=== PATIENT | male | born 1975 | race Caucasian/White ===

== ENCOUNTER 2017-02-26 12:27 | Emergency (ER) | payer BC, OTHER, SELFPAY ==
[~2017-02-26] VITALS: Ht 165.1 cm; Wt 65.8 kg
[2017-02-26 12:28] VITALS: BP 140/86
[2017-02-26] MEDS ORDERED: OMEP40CA2 (12:41)
[2017-02-26] MEDS ORDERED: ZOLP5TAB (12:41)
[2017-02-26] MEDS ORDERED: GABA-282 (12:41)
[2017-02-26] MEDS ORDERED: DICL75TA PO (14:02)
== END 2017-02-26 14:11 | disposition home or self-care (01) ==
LOC: M ED 13:34
DX: S13.4XXA Sprain of ligaments of cervical spine, initial encounter (principal); X58.XXXA Exposure to other specified factors, initial encounter; Y92.89 Other specified places as the place of occurrence of the external cause; Y93.89 Activity, other specified; M54.5 Low back pain; M89.29 Other disorders of bone development and growth, multiple sites; Z87.891 Personal history of nicotine dependence; Z88.8 Allergy status to other drugs, medicaments and biological substances; Y99.8 Other external cause status

== ENCOUNTER 2017-03-11 13:34 | Emergency (ER) | payer BC, SELFPAY ==
[~2017-03-11] VITALS: Ht 165.1 cm; Wt 65.8 kg
[~2017-03-11 13:34] MED LIST: DICL75TA PO; GABA-282; OMEP40CA2; ZOLP5TAB
[2017-03-11] MEDS ORDERED: NORCO, ANEXSIA 5/325MG TABLET (HYDROcodone/ACETAMINOPHEN) PO ONE (14:15)
--- NOTE | 2017-03-11 14:50 | REP ---
CERVICAL SPINE: AP and lateral views of the cervical spine with three total views obtained. There is no fracture or malalignment. There is no prevertebral soft tissue swelling. Disc spaces are well preserved. There is mild spurring of C5 and C6 vertebral bodies. IMPRESSION: Mild spurring C5 and C6. Signed by Rangel June MD 03/11/2017 05:45 P
[2017-03-11] MEDS ORDERED: NORCOTAB PO (14:59)
[2017-03-11 15:05] VITALS: BP 150/91
== END 2017-03-11 15:30 | disposition home or self-care (01) ==
LOC: M ED 14:31
DX: M50.322 Other cervical disc degeneration at C5-C6 level (principal); G47.00 Insomnia, unspecified; Z79.899 Other long term (current) drug therapy; Z88.8 Allergy status to other drugs, medicaments and biological substances

== ENCOUNTER → 2017-03-25 | Outpatient (CLI) | payer BC ==
[~2017-03-25] MED LIST changes: +FLON1SPR; +IBUP600T26 PO; +NORCOTAB PO; +VALI5TAB PO
--- NOTE | 2017-03-26 09:00 | REP ---
MRI CERVICAL SPINE WITHOUT CONTRAST: 03/25/2017. Clinical history: Neck pain. Comparison: X-ray 03/11/2017, MRI 10/12/2015. Technique: Sagittal T1, T2 and STIR images with axial T1-T2 sequences. Findings: Sagittal images show maintenance of the normal gentle cervical lordosis. Vertebral body heights and marrow signal through the cervical upper thoracic levels are normal throughout. There is loss of disc water signal at most levels without loss of disc height. There is no prevertebral swelling. Cervical cord shows no intrinsic signal abnormality, syrinx, atrophy or mass. There is ample subarachnoid space at the craniocervical junction with no cerebellar tonsillar ectopia. At C2-3, C3-4 and C4-5, there is no significant disc bulge herniation and no spinal or foraminal stenosis. At C5-6, there is minimal disc bulge thinning the ventral subarachnoid space but not causing central canal or foraminal stenosis. At C6-7 and C7-T1, there is no disc bulge or herniation and no spinal or foraminal stenosis. Impression: 1. Mild disc bulge at C5-6 without spinal or foraminal stenosis. No cord compression. 2. The other disc levels show no significant spinal or foraminal stenosis. No cord signal abnormality, syrinx or other abnormality. Stable examination. Signed by Zeferino Corrigan MD 03/26/2017 01:18 P
== END ==
LOC: M RAD 17:35
PROVIDERS: ATTEND Family Medicine Addiction Medicine
DX: M50.20 Other cervical disc displacement, unspecified cervical region (principal)

== ENCOUNTER 2017-04-02 14:30 | Emergency (ER) | payer BC ==
[~2017-04-02] VITALS: Ht 165.1 cm; Wt 72.6 kg
[~2017-04-02 14:30] MED LIST changes: -FLON1SPR; -IBUP600T26 PO; -VALI5TAB PO
[2017-04-02 14:31] VITALS: BP 155/89
[2017-04-02] MEDS ORDERED: FLON1SPR (14:46)
[2017-04-02] MEDS ORDERED: VALI5TAB PO (16:21)
[2017-04-02] MEDS ORDERED: IBUP600T26 PO (16:21)
== END 2017-04-02 16:30 | disposition home or self-care (01) ==
LOC: M ED 15:46
DX: M54.12 Radiculopathy, cervical region (principal); Z88.8 Allergy status to other drugs, medicaments and biological substances; Z79.899 Other long term (current) drug therapy; Z87.891 Personal history of nicotine dependence

== ENCOUNTER 2017-04-22 11:01 | Emergency (ER) | payer BC ==
[~2017-04-22] VITALS: Ht 165.1 cm; Wt 77.3 kg
[~2017-04-22 11:01] MED LIST changes: +FLON1SPR; +IBUP600T26 PO; +VALI5TAB PO
[2017-04-22] MEDS ORDERED: TESS100C PO (12:51)
[2017-04-22] MEDS ORDERED: CHERSYP3 PO (12:51)
[2017-04-22] MEDS ORDERED: ZITHTAB PO (12:51)
[2017-04-22 13:00] VITALS: BP 130/85
== END 2017-04-22 13:03 | disposition home or self-care (01) ==
LOC: M ED 12:09
DX: H65.91 Unspecified nonsuppurative otitis media, right ear (principal); J98.01 Acute bronchospasm; R51 Headache; G47.00 Insomnia, unspecified; Z90.49 Acquired absence of other specified parts of digestive tract; Z79.899 Other long term (current) drug therapy; Z88.8 Allergy status to other drugs, medicaments and biological substances

== ENCOUNTER 2017-06-04 13:27 | Emergency (ER) | payer BC ==
[~2017-06-04] VITALS: Ht 165.1 cm; Wt 78.2 kg
[~2017-06-04 13:27] MED LIST changes: +CHERSYP3 PO; +IBUP-1022 PO; -IBUP600T26 PO; +TESS100C PO; +ZITHTAB PO
[2017-06-04] MEDS ORDERED: PERCOCET 5MG/325MG TAB PO ONE (14:00)
[2017-06-04] MEDS ORDERED: MOBI4TAB PO (14:03)
--- NOTE | 2017-06-04 14:28 | REP ---
Right knee five views : There is no fracture or dislocation. Mineralization and joint spaces are normal. There are no calcifications or foreign bodies. Impression: Negative right knee . Signed by Rangel Holloway MD 06/04/2017 02:20 P
[2017-06-04] MEDS ORDERED: PERC5TAB12 PO (14:31)
[2017-06-04 14:45] VITALS: BP 146/84
== END 2017-06-04 15:01 | disposition home or self-care (01) ==
LOC: M ED 13:27
DX: M25.561 Pain in right knee (principal); K21.9 Gastro-esophageal reflux disease without esophagitis; M54.9 Dorsalgia, unspecified; G47.00 Insomnia, unspecified; Z79.899 Other long term (current) drug therapy; Z88.8 Allergy status to other drugs, medicaments and biological substances

== ENCOUNTER → 2017-06-24 | Outpatient (REF) | payer BC ==
[~2017-06-24] MED LIST changes: +EXCETAB80 PO; +MELO7.5T7 PO; +MOBI4TAB PO; +PERC5TAB12 PO
[2017-06-24 18:48] LABS: URIC ACID 6.3 MG/DL (3.5-7.2)
[2017-07-02 00:11] LABS: Lyme Disease IgG/IgM Antibodie <0.91 ISR (0.00-0.90); Lyme Disease IgM Ab Quantitati <0.80 index (0.00-0.79)
== END ==
LOC: M LABDRAW1 16:00
PROVIDERS: ATTEND Orthopaedic Surgery
DX: M25.561 Pain in right knee (principal)

== ENCOUNTER 2017-07-31 12:47 | Emergency (ER) | payer BC ==
[~2017-07-31] VITALS: Ht 167.6 cm; Wt 65.9 kg
[~2017-07-31 12:47] MED LIST changes: -EXCETAB80 PO; -MELO7.5T7 PO
[2017-07-31] MEDS ORDERED: EXCETAB80 PO (13:10)
[2017-07-31] MEDS ORDERED: PERCOCET 5MG/325MG TAB PO ONE (14:15)
[2017-07-31 14:18] VITALS: BP 116/68
== END 2017-07-31 14:19 | disposition home or self-care (01) ==
LOC: M ED 12:47
DX: M25.561 Pain in right knee (principal); G89.29 Other chronic pain; M51.36 Other intervertebral disc degeneration, lumbar region; M50.30 Other cervical disc degeneration, unspecified cervical region; M54.10 Radiculopathy, site unspecified; G47.00 Insomnia, unspecified; K21.9 Gastro-esophageal reflux disease without esophagitis; Z87.891 Personal history of nicotine dependence; Z79.899 Other long term (current) drug therapy; Z79.51 Long term (current) use of inhaled steroids; Z88.8 Allergy status to other drugs, medicaments and biological substances

== ENCOUNTER 2017-08-20 13:43 | Emergency (ER) | payer BC, MEDICAID ==
[~2017-08-20] VITALS: Ht 165.1 cm; Wt 72.7 kg
[2017-08-20 13:43] VITALS: BP 122/87
[~2017-08-20 13:43] MED LIST changes: +EXCETAB80 PO
[2017-08-20] MEDS ORDERED: MELO7.5T7 PO (14:15)
[2017-08-20] MEDS ORDERED: NORCOTAB PO (15:47)
== END 2017-08-20 15:56 | disposition home or self-care (01) ==
LOC: M ED 13:43
DX: M79.651 Pain in right thigh (principal); K21.9 Gastro-esophageal reflux disease without esophagitis; F17.210 Nicotine dependence, cigarettes, uncomplicated; Z79.899 Other long term (current) drug therapy; Z88.8 Allergy status to other drugs, medicaments and biological substances

== ENCOUNTER 2017-09-26 18:33 | Emergency (ER) | payer BC, MEDICAID, OTHER ==
[~2017-09-26] VITALS: Ht 165.1 cm; Wt 70.5 kg
[~2017-09-26 18:33] MED LIST changes: +MELO7.5T7 PO
[2017-09-26] MEDS ORDERED: IBUP-1022 PO (20:43)
[2017-09-26] MEDS ORDERED: IBUPROFEN 600 MG TAB PO ONE (20:45)
[2017-09-26 21:11] VITALS: BP 135/86
--- NOTE | 2017-09-27 08:04 | REP ---
Clinical: Trauma. Technique: AP, lateral, bilateral oblique views left wrist . Findings: The carpal bones, surrounding osseous structures, soft tissues, and joint spaces are normal. There is no evidence for acute fracture or dislocation. No subcutaneous emphysema or radiodense foreign body. Impression: Normal left wrist series. No acute fracture or dislocation Signed by Ilia Nixon MD 09/27/2017 07:55 A
== END 2017-09-26 21:20 | disposition home or self-care (01) ==
LOC: M ED 18:33
DX: S63.502A Unspecified sprain of left wrist, initial encounter (principal); W01.198A Fall on same level from slipping, tripping and stumbling with subsequent striking against other object, initial encounter; Y92.410 Unspecified street and highway as the place of occurrence of the external cause; Y93.89 Activity, other specified; Y99.8 Other external cause status; F17.210 Nicotine dependence, cigarettes, uncomplicated; Z79.899 Other long term (current) drug therapy; Z88.8 Allergy status to other drugs, medicaments and biological substances

== ENCOUNTER → 2017-10-31 | Outpatient (CLI) | payer OTHER ==
--- NOTE | 2017-10-31 14:50 | REP ---
TRIPLE PHASE BONE SCAN OF THE KNEES: Following the administration of 21.5 mCi technetium 99m MDP, patient's knees are imaged in the flow phase in the anterior and posterior projections showing symmetrical blood flow. Immediate, blood pool, and 3-hour delayed images are performed of the knees in the anterior, posterior, and both lateral projections. There is small focus of increased blood pooling with more intense focal delayed uptake in the right medial femoral condyle posteriorly. There is some mild delayed activity also in the right anterior tibial tubercle. No other definite abnormalities are seen. IMPRESSION: Focal mild increased blood pooling and more intense delayed uptake in the posterior aspect of the medial femoral condyle on the right. This could represent focal stress-related changes at a tendinous insertion site. There is no definite bone lesion seen on the prior radiographs from 06/04/2017. Very mild increased uptake on delayed images in the right anterior tibial tubercle could also represent focal stress-related changes. Further evaluation may be made with MRI of the right knee. Signed by Rangel June MD 10/31/2017 08:41 P
== END ==
LOC: M RAD 10:35
PROVIDERS: ATTEND Orthopaedic Surgery
DX: M17.11 Unilateral primary osteoarthritis, right knee (principal)

== ENCOUNTER → 2017-11-22 | Outpatient (CLI) | payer OTHER | LOC: M EKG 11:56 | DX: R00.2 Palpitations (principal) | CPT/HCPCS: 93005 ==

== ENCOUNTER 2017-11-29 14:31 | Emergency (ER) | payer OTHER, MEDICAID ==
[2017-11-29 15:21] LABS: BASO % 0.3 % (0.0-1.0); EOS # 0.1 10^3/uL (0.0-0.50); EOS % 1.3 % (0.0-3.0); HEMATOCRIT 41.2 % (42.0-52.0); HEMOGLOBIN 13.8 g/dl (14.0-18.0); IMMATURE GRANULOCYTE % 0.3 % (0-0); LYMPH # 2.2 10^3/uL (1.5-4.5); MEAN CORPUSCULAR HEMOGLOBIN 27.3 pg (27.0-33.0); MEAN CORPUSCULAR HGB CONC 33.5 g/dl (32.0-36.5); MEAN CORPUSCULAR VOLUME 81.6 fl (80.0-96.0); MONO # 0.5 10^3/uL (0.0-0.8); MONO % 7.6 % (0.0-5.0); NEUTROPHILS # 3.3 10^3/uL (1.8-7.7); NEUTROPHILS % 54.5 % (36.0-66.0); PLATELET COUNT, AUTOMATED 311 10^3/uL (150-450); RED BLOOD COUNT 5.05 10^6/uL (4.30-6.10); RED CELL DISTRIBUTION WIDTH 13.6 % (11.5-14.5); WHITE BLOOD COUNT 6.1 10^3/uL (4.0-10.0)
[2017-11-29 15:24] LABS: INR 0.86; PROTHROMBIN TIME 11.8 SECONDS (12.4-14.5)
[2017-11-29 15:37] LABS: ALBUMIN 4.5 GM/DL (3.2-5.2); ALBUMIN/GLOBULIN RATIO 1.29 (1.00-1.93); ALKALINE PHOSPHATASE 63 U/L (45-117); ALT/SGPT 49 U/L (12-78); ANION GAP 8 MEQ/L (8-16); AST/SGOT 25 U/L (7-37); BILIRUBIN,DIRECT < 0.1 MG/DL (0.0-0.2); BILIRUBIN,TOTAL 0.2 MG/DL (0.2-1.0); BLOOD UREA NITROGEN 15 MG/DL (7-18); CALCIUM LEVEL 9.1 MG/DL (8.5-10.1); CARBON DIOXIDE LEVEL 29 MEQ/L (21-32); CHLORIDE LEVEL 99 MEQ/L (98-107); CPK CREATINE PHOSPHOKINASE 137 U/L (39-308); CREATININE FOR GFR 1.04 MG/DL (0.70-1.30); GLOMERULAR FILTRATION RATE > 60.0 (>60); GLUCOSE, FASTING 75 MG/DL (70-105); LIPASE 203 U/L (73-393); MB/CK RELATIVE INDEX 0.72 (< OR =4); NT-PRO BNP 32 PG/ML (<125); POTASSIUM SERUM 3.6 MEQ/L (3.5-5.1); SODIUM LEVEL 136 MEQ/L (136-145); TROPONIN I < 0.02 NG/ML (< 0.10)
[2017-11-29 15:44] LABS: D-DIMER QUANT 350.8 ng/ml (<500)
[2017-11-29] MEDS ORDERED: ISOVUE-370 76% 100ML VIAL (Q9967) As Ordered (16:01)
[2017-11-29] MEDS: GI COCKTAIL 50ML BTL(HYOSCYAMINE/MAALOX/LIDOCAINE VISCOUS)(1:3:1) PO (16:13)
== END 2017-11-29 17:25 | disposition home or self-care (01) ==
LOC: M ED 14:31
DX: R07.9 Chest pain, unspecified (principal); Z98.890 Other specified postprocedural states; Z79.899 Other long term (current) drug therapy; Z88.8 Allergy status to other drugs, medicaments and biological substances
CPT/HCPCS: Q9967

== ENCOUNTER 2017-12-03 16:38 | Emergency (ER) | payer OTHER, MEDICAID ==
[2017-12-03] MEDS: NS 1,000 ML IV (16:59)
[2017-12-03] MEDS: ASPIRIN 81 MG CHEW TABLET PO (17:19)
[2017-12-03] MEDS: NITROGLYCERIN 0.4 MG SUBL TABLET SL (17:21)
[2017-12-03 17:35] LABS: BASO % 0.2 % (0.0-1.0); EOS # 0.1 10^3/uL (0.0-0.50); EOS % 0.5 % (0.0-3.0); HEMATOCRIT 38.8 % (42.0-52.0); HEMOGLOBIN 13.2 g/dl (14.0-18.0); IMMATURE GRANULOCYTE % 0.2 % (0-0); LYMPH # 2.2 10^3/uL (1.5-4.5); MEAN CORPUSCULAR HEMOGLOBIN 27.6 pg (27.0-33.0); MONO # 0.5 10^3/uL (0.0-0.8); NEUTROPHILS # 7.5 10^3/uL (1.8-7.7); NEUTROPHILS % 73.1 % (36.0-66.0); PLATELET COUNT, AUTOMATED 307 10^3/uL (150-450); RED BLOOD COUNT 4.79 10^6/uL (4.30-6.10); RED CELL DISTRIBUTION WIDTH 13.5 % (11.5-14.5); WHITE BLOOD COUNT 10.3 10^3/uL (4.0-10.0)
[2017-12-03 17:36] LABS: INR 0.97
[2017-12-03 17:45] LABS: ANION GAP 7 MEQ/L (8-16); BLOOD UREA NITROGEN 14 MG/DL (7-18); CALCIUM LEVEL 8.7 MG/DL (8.5-10.1); CARBON DIOXIDE LEVEL 28 MEQ/L (21-32); CHLORIDE LEVEL 101 MEQ/L (98-107); CPK CREATINE PHOSPHOKINASE 290 U/L (39-308); CREATININE FOR GFR 0.99 MG/DL (0.70-1.30); GLOMERULAR FILTRATION RATE > 60.0 (>60); GLUCOSE, FASTING 101 MG/DL (70-100); POTASSIUM SERUM 3.6 MEQ/L (3.5-5.1); SODIUM LEVEL 136 MEQ/L (136-145)
[2017-12-03 17:46] LABS: CK-MB VALUE MASS 1.4 NG/ML (0.0-3.6); MB/CK RELATIVE INDEX 0.48 (< OR =4); TROPONIN I < 0.02 NG/ML (< 0.10)
[2017-12-03] MEDS ORDERED: METAL LOCK LOOP XX (19:28)
== END 2017-12-03 19:34 | disposition home or self-care (01) ==
LOC: M ED 16:38
DX: R07.89 Other chest pain (principal); K21.9 Gastro-esophageal reflux disease without esophagitis; G89.29 Other chronic pain; Z79.82 Long term (current) use of aspirin; Z79.899 Other long term (current) drug therapy; Z88.8 Allergy status to other drugs, medicaments and biological substances; Z82.49 Family history of ischemic heart disease and other diseases of the circulatory system
CPT/HCPCS: 71045

== ENCOUNTER 2017-12-05 21:16 | Emergency (ER) | payer OTHER, MEDICAID ==
[2017-12-05] MEDS: LORazepam 2 MG/ML VIAL (J2060) IV (22:11)
[2017-12-05] MEDS ORDERED: ISOVUE-370 76% 100ML VIAL (Q9967) As Ordered (22:18)
[2017-12-05 22:41] LABS: HEMOGLOBIN 14.6 g/dl (14.0-18.0); MEAN CORPUSCULAR HEMOGLOBIN 27.5 pg (27.0-33.0); MEAN CORPUSCULAR HGB CONC 34.8 g/dl (32.0-36.5); MEAN CORPUSCULAR VOLUME 79.1 fl (80.0-96.0); PLATELET COUNT, AUTOMATED 380 10^3/uL (150-450); RED BLOOD COUNT 5.31 10^6/uL (4.30-6.10); RED CELL DISTRIBUTION WIDTH 13.4 % (11.5-14.5); WHITE BLOOD COUNT 11.2 10^3/uL (4.0-10.0)
[2017-12-05 22:56] LABS: ANION GAP 12 MEQ/L (8-16); BLOOD UREA NITROGEN 13 MG/DL (7-18); CALCIUM LEVEL 9.7 MG/DL (8.5-10.1); CARBON DIOXIDE LEVEL 25 MEQ/L (21-32); CHLORIDE LEVEL 99 MEQ/L (98-107); CK-MB VALUE MASS 2.1 NG/ML (0.0-3.6); CPK CREATINE PHOSPHOKINASE 251 U/L (39-308); CREATININE FOR GFR 1.34 MG/DL (0.70-1.30); GLOMERULAR FILTRATION RATE > 60.0 (>60); GLUCOSE, FASTING 157 MG/DL (70-100); MB/CK RELATIVE INDEX 0.83 (< OR =4); POTASSIUM SERUM 2.8 MEQ/L (3.5-5.1); SODIUM LEVEL 136 MEQ/L (136-145); TROPONIN I < 0.02 NG/ML (< 0.10)
[2017-12-05 22:57] LABS: NT-PRO BNP 30 PG/ML (<125)
[2017-12-05 23:01] LABS: ADD MANUAL DIFFER YES; DIFF SLIDE NUMBER 374; POSITIVE DIFF POS FLAG
[2017-12-05 23:06] LABS: ATYPICAL LYMPH 9 % (0-5); LYMPHOCYTES 38 % (16-52); MONOCYTES 5 % (0-8); NEUTROPHILS 48 % (35-75)
[2017-12-05 23:07] LABS: PLATELET ESTIMATE NORMAL (NORMAL)
[2017-12-05 23:15] LABS: MAGNESIUM LEVEL 2.1 MG/DL (1.8-2.4)
[2017-12-05 23:42] LABS: ABG BASE EXCESS 2.2 (-2.0-2.0); ABG O2 SATURATION 98.6 % (95.0-99.0); ABG PARTIAL PRESSURE CO2 29.7 mmHg (35.0-45.0); ABG STANDARD HCO3 26.5 MEQ/L (22.0-26.0); ABG TOTAL CO2 24.9 MEQ/L (22.0-29.0); ABG pH (ARTERIAL) 7.526 UNITS (7.350-7.450)
[2017-12-06] MEDS: POTASSIUM CHLORIDE 10 MEQ SR TABLET PO
== END 2017-12-06 00:19 | disposition home or self-care (01) ==
LOC: M ED 12-06 00:19
DX: F41.0 Panic disorder [episodic paroxysmal anxiety] (principal); E87.6 Hypokalemia; I10 Essential (primary) hypertension; K21.9 Gastro-esophageal reflux disease without esophagitis; Z79.82 Long term (current) use of aspirin; Z79.899 Other long term (current) drug therapy; Z88.8 Allergy status to other drugs, medicaments and biological substances; Z87.891 Personal history of nicotine dependence
CPT/HCPCS: Q9967

== ENCOUNTER → 2017-12-16 | Outpatient (REF) | payer OTHER, MEDICAID ==
[2017-12-16 13:01] LABS: BASO % 0.4 % (0.0-1.0); EOS # 0.1 10^3/uL (0.0-0.50); EOS % 1.5 % (0.0-3.0); HEMOGLOBIN 14.7 g/dl (14.0-18.0); IMMATURE GRANULOCYTE % 0.3 % (0-0); LYMPH # 1.9 10^3/uL (1.5-4.5); LYMPH % 25.8 % (24.0-44.0); MEAN CORPUSCULAR HEMOGLOBIN 27.3 pg (27.0-33.0); MEAN CORPUSCULAR HGB CONC 32.7 g/dl (32.0-36.5); MEAN CORPUSCULAR VOLUME 83.5 fl (80.0-96.0); MONO # 0.5 10^3/uL (0.0-0.8); MONO % 7.3 % (0.0-5.0); NEUTROPHILS # 4.7 10^3/uL (1.8-7.7); NEUTROPHILS % 64.7 % (36.0-66.0); PLATELET COUNT, AUTOMATED 347 10^3/uL (150-450); RED BLOOD COUNT 5.39 10^6/uL (4.30-6.10); RED CELL DISTRIBUTION WIDTH 14.4 % (11.5-14.5); WHITE BLOOD COUNT 7.2 10^3/uL (4.0-10.0)
[2017-12-16 13:35] LABS: ALBUMIN 4.6 GM/DL (3.2-5.2); ALBUMIN/GLOBULIN RATIO 1.28 (1.00-1.93); ALKALINE PHOSPHATASE 68 U/L (45-117); ALT/SGPT 48 U/L (12-78); ANION GAP 6 MEQ/L (8-16); AST/SGOT 20 U/L (7-37); BILIRUBIN,TOTAL 0.3 MG/DL (0.2-1.0); BLOOD UREA NITROGEN 12 MG/DL (7-18); CALCIUM LEVEL 9.6 MG/DL (8.5-10.1); CARBON DIOXIDE LEVEL 28 MEQ/L (21-32); CHLORIDE LEVEL 102 MEQ/L (98-107); CHOLESTEROL LEVEL 256 MG/DL (<200); CHOLESTEROL RISK RATIO 3.878 (<5); CREATININE FOR GFR 1.05 MG/DL (0.70-1.30); GLOMERULAR FILTRATION RATE > 60.0 (>60); GLUCOSE, FASTING 103 MG/DL (70-100); HDL CHOLESTEROL 66 MG/DL (>40); LDL CHOLESTEROL 153.8 MG/DL (<100); NON-HDL-C 190 MG/DL; POTASSIUM SERUM 4.6 MEQ/L (3.5-5.1); SODIUM LEVEL 136 MEQ/L (136-145); TOTAL PROTEIN 8.2 GM/DL (6.4-8.2); TRIGLYCERIDES LEVEL 181 MG/DL (<150)
== END ==
LOC: M LAB REF 12:28
DX: I10 Essential (primary) hypertension (principal)
CPT/HCPCS: 84443

== ENCOUNTER 2017-12-21 22:52 | Emergency (ER) | payer OTHER, MEDICAID ==
[2017-12-21] MEDS: NS 1,000 ML IV (23:26)
[2017-12-21 23:28] LABS: BASO % 0.3 % (0.0-1.0); EOS # 0.1 10^3/uL (0.0-0.50); HEMATOCRIT 40.3 % (42.0-52.0); HEMOGLOBIN 13.2 g/dl (14.0-18.0); IMMATURE GRANULOCYTE % 0.5 % (0-3.0); LYMPH # 2.2 10^3/uL (1.5-4.5); LYMPH % 23.6 % (24.0-44.0); MEAN CORPUSCULAR HEMOGLOBIN 27.5 pg (27.0-33.0); MEAN CORPUSCULAR HGB CONC 32.8 g/dl (32.0-36.5); MONO # 0.7 10^3/uL (0.0-0.8); MONO % 7.5 % (0.0-5.0); NEUTROPHILS # 6.2 10^3/uL (1.8-7.7); NEUTROPHILS % 67.1 % (36.0-66.0); PLATELET COUNT, AUTOMATED 300 10^3/uL (150-450); RED CELL DISTRIBUTION WIDTH 14.3 % (11.5-14.5); WHITE BLOOD COUNT 9.2 10^3/uL (4.0-10.0)
[2017-12-21 23:35] LABS: INR 0.85; PROTHROMBIN TIME 11.7 SECONDS (12.4-14.5)
[2017-12-22 00:01] LABS: ANION GAP 8 MEQ/L (8-16); BLOOD UREA NITROGEN 23 MG/DL (7-18); CALCIUM LEVEL 8.3 MG/DL (8.5-10.1); CARBON DIOXIDE LEVEL 29 MEQ/L (21-32); CHLORIDE LEVEL 104 MEQ/L (98-107); CPK CREATINE PHOSPHOKINASE 78 U/L (39-308); CREATININE FOR GFR 1.02 MG/DL (0.70-1.30); GLOMERULAR FILTRATION RATE > 60.0 (>60); GLUCOSE, FASTING 84 MG/DL (70-100); SODIUM LEVEL 141 MEQ/L (136-145); TROPONIN I < 0.02 NG/ML (< 0.10)
[2017-12-22 00:02] LABS: MB/CK RELATIVE INDEX 1.28 (< OR =4)
[2017-12-22] MEDS: NS 1,000 ML IV (00:25)
[2017-12-22] MEDS: ACETAMINOPHEN 325 MG TAB PO (01:15)
== END 2017-12-22 02:18 | disposition home or self-care (01) ==
LOC: M ED 22:52
DX: R00.2 Palpitations (principal); I10 Essential (primary) hypertension; F41.9 Anxiety disorder, unspecified; G89.29 Other chronic pain; K21.9 Gastro-esophageal reflux disease without esophagitis; M54.9 Dorsalgia, unspecified; G47.00 Insomnia, unspecified; Z79.899 Other long term (current) drug therapy; Z79.02 Long term (current) use of antithrombotics/antiplatelets; Z88.8 Allergy status to other drugs, medicaments and biological substances; Z87.891 Personal history of nicotine dependence
CPT/HCPCS: 71045

== ENCOUNTER → 2018-01-08 | Outpatient (CLI) | payer OTHER, MEDICAID ==
[2018-01-08 11:48] LABS: BASO % 0.2 % (0.0-1.0); EOS # 0.1 10^3/uL (0.0-0.50); EOS % 1.7 % (0.0-3.0); HEMATOCRIT 36.6 % (42.0-52.0); HEMOGLOBIN 12.1 g/dl (14.0-18.0); IMMATURE GRANULOCYTE % 0.2 % (0-3.0); LYMPH # 1.5 10^3/uL (1.5-4.5); MEAN CORPUSCULAR HEMOGLOBIN 27.9 pg (27.0-33.0); MEAN CORPUSCULAR HGB CONC 33.1 g/dl (32.0-36.5); MEAN CORPUSCULAR VOLUME 84.3 fl (80.0-96.0); MONO # 0.3 10^3/uL (0.0-0.8); MONO % 5.9 % (0.0-5.0); NEUTROPHILS # 3.3 10^3/uL (1.8-7.7); PLATELET COUNT, AUTOMATED 238 10^3/uL (150-450); RED BLOOD COUNT 4.34 10^6/uL (4.30-6.10); RED CELL DISTRIBUTION WIDTH 14.6 % (11.5-14.5); WHITE BLOOD COUNT 5.3 10^3/uL (4.0-10.0)
[2018-01-08 12:25] LABS: ANION GAP 6 MEQ/L (8-16); BLOOD UREA NITROGEN 13 MG/DL (7-18); CALCIUM LEVEL 8.4 MG/DL (8.5-10.1); CARBON DIOXIDE LEVEL 29 MEQ/L (21-32); CHLORIDE LEVEL 109 MEQ/L (98-107); CREATININE FOR GFR 0.87 MG/DL (0.70-1.30); GLOMERULAR FILTRATION RATE > 60.0 (>60); GLUCOSE, FASTING 86 MG/DL (70-100); SODIUM LEVEL 144 MEQ/L (136-145)
== END ==
LOC: M LAB 11:24
DX: M25.561 Pain in right knee (principal); G89.29 Other chronic pain; M89.9 Disorder of bone, unspecified
CPT/HCPCS: 80048

== ENCOUNTER → 2020-07-07 | Outpatient (CLI) | payer MEDICAID ==
[~2020-07-07] MED LIST changes: +ASPI81TA86 PO; +CHLO25TA GT; +CLON0.5T2 PO; -GABA-282; +GABA-843; +GABA-845 PO; +HYDR-3713 PO; +HYDR-3715 PO; +KLOR10TA76 PO; +LISI10TA4 PO; +LOSA100T50 PO; +MIRT15TA3; -NORCOTAB PO; -OMEP40CA2; +OMEP40CA97; +PEPC1TAB5 PO; +PROZ40CA; +XANA0.25 PO
== END ==
LOC: M OUTALCOH 07:50
PROVIDERS: ATTEND Psychiatry & Neurology Addiction Medicine
DX: Z13.39 Encounter for screening examination for other mental health and behavioral disorders (principal); F11.20 Opioid dependence, uncomplicated